=== PATIENT | female | born 1935 | race Caucasian/White ===

== ENCOUNTER → 2016-04-26 | Outpatient (CLI) | payer OTHER ==
[2016-04-26 16:38] LABS: BLOOD UREA NITROGEN 19 mg/dL (7-22); BUN/CREATININE RATIO 12.66 (6-20); CALCIUM 10.4 mg/dL (8.7-10.7); CHLORIDE 100 meq/L (98-112); CREATININE 1.5 mg/dL (0.50-1.20); GLUCOSE 88 mg/dL (78-110); POTASSIUM 4.7 meq/L (3.8-5.2); SODIUM 139 meq/L (135-145)
== END ==
LOC: MOB LAB 14:29
PROVIDERS: ATTEND Nurse Practitioner
DX: I10 Essential (primary) hypertension (principal)
CPT/HCPCS: 36415; 80048

== ENCOUNTER 2016-05-06 05:55 | Day surgery (SDC) | payer OTHER ==
[~2016-05-06 05:55] MED LIST: LIDOCAINE W/ SODIUM BICARB 0.5 ML SYR ONE; Lactated Ringers 1,000 ML PRIMARY IV ONE
[2016-05-06] MEDS ORDERED: fentaNYL Inj 100 MCG/2 ML VIAL IVP ONE (06:15)
[2016-05-06] MEDS ORDERED: MIDAZOLAM 5 MG/1 ML IV ONE (06:15)
[2016-05-06 08:04] VITALS: RESP 14; TEMP 97.5
== END 2016-05-06 08:02 | disposition home or self-care (01) ==
LOC: SDSC 05:55
PROVIDERS: ATTEND Ophthalmology
DX: H25.12 Age-related nuclear cataract, left eye (principal)
CPT/HCPCS: 00142; 66984; J3010; J2250; J7120

== ENCOUNTER → 2016-06-10 | Outpatient (CLI) | payer OTHER ==
[2016-06-10 08:46] LABS: BUN/CREATININE RATIO 21.11 (6-20); CALCIUM 9.6 mg/dL (8.7-10.7); SERUM ALBUMIN 4.2 g/dL (3.5-4.8)
[2016-06-10 10:40] LABS: CHOL/HDL RATIO 3.52 RATIO (0-4.0); LDL CHOLESTEROL,CALCULATED 63.8 mg/dL
== END ==
LOC: LAB 08:03
PROVIDERS: ATTEND Internal Medicine
DX: E78.5 Hyperlipidemia, unspecified (principal); I10 Essential (primary) hypertension
CPT/HCPCS: 36415; 80053; 80061; 82550

== ENCOUNTER → 2016-06-12 | Outpatient (CLI) | payer OTHER | LOC: MMPC 11:11 | PROVIDERS: ATTEND Internal Medicine | DX: R05 Cough (principal); I10 Essential (primary) hypertension; G47.33 Obstructive sleep apnea (adult) (pediatric); G47.34 Idiopathic sleep related nonobstructive alveolar hypoventilation; Z86.79 Personal history of other diseases of the circulatory system | CPT/HCPCS: 99214; G0463 ==

== ENCOUNTER → 2016-09-11 | Outpatient (CLI) | payer OTHER ==
[2016-09-11 13:15] LABS: CALCIUM 9.5 mg/dL (8.7-10.7); CHOL/HDL RATIO 4.83 RATIO (0-4.0); LDL CHOLESTEROL,CALCULATED 165.8 mg/dL; SERUM ALBUMIN 4.5 g/dL (3.5-4.8)
== END ==
LOC: MOB LAB 10:45
PROVIDERS: ATTEND Internal Medicine
DX: R09.02 Hypoxemia (principal); E78.5 Hyperlipidemia, unspecified; I10 Essential (primary) hypertension; J43.2 Centrilobular emphysema; G47.33 Obstructive sleep apnea (adult) (pediatric); Z86.79 Personal history of other diseases of the circulatory system; G47.34 Idiopathic sleep related nonobstructive alveolar hypoventilation
CPT/HCPCS: 36415; 80053; 80061; 82550; 99214; G0463

== ENCOUNTER → 2016-10-02 | Outpatient (CLI) | payer OTHER | LOC: MMPC 09:00 | PROVIDERS: ATTEND Obstetrics & Gynecology | DX: R15.9 Full incontinence of feces (principal) ==